=== PATIENT | male | born 1970 | race Caucasian/White ===

== ENCOUNTER 2016-06-04 09:20 | Outpatient (CLI) | payer OTHER ==
[2015-11-23 13:09] VITALS: BMI 25.0
--- NOTE | 2016-06-04 10:06 | DI ---
EXAM: Six radiographic images of the cervical spine. Comparison: None available. Reason for study: Cervical facet joint arthropathy. FINDINGS: Postoperative changes are seen after anterior cervical discectomy and fusion spanning fro m C4-C7. The plate is seated against the anterior cervical vertebral bodies. There appears to be o sseous ridging spanning the entire construct. One of the superior-most cervical screws is is not se en and against the cervical plate, although, without prior imaging it is on the if this screw is heladio hazel out over time or if the screw positioning is stable since surgical intervention. There is no o sseous foraminal narrowing seen on the oblique images. There is 2 mm of retrolithesis of the C3 katerine tebral body on the fusion construct. IMPRESSION: Postoperative changes after for level anterior cervical discectomy and fusion with a sm all amount of retrolithesis at the C3 to fusion construct interspace. The superiormost cervical scr ew is not seen against the cervical plate. Recommend correlation with prior imaging.
== END 2016-06-04 09:21 | disposition home or self-care (01) ==
LOC: RAD 09:20
PROVIDERS: ATTEND Pain Medicine Interventional Pain Medicine
DX: M47.812 Spondylosis without myelopathy or radiculopathy, cervical region (principal); M50.31 Other cervical disc degeneration, high cervical region; M50.320 Other cervical disc degeneration, mid-cervical region, unspecified level

== ENCOUNTER 2018-09-13 08:48 | Outpatient (CLI) ==
[2015-11-23 13:09] VITALS: BMI 25.0
--- NOTE | 2018-09-13 11:17 | MRI ---
EXAM: Cervical spine MRI without contrast TECHNIQUE: Multiplanar multisequence MRI of the cervical spine was performed without contrast. COMPARISON: Cervical spine series from 09/13/2018 HISTORY: Neck pain with history of neck surgery FINDINGS: There has been prior anterior cervical discectomy and fusion from C4-C7. Alignment of the construct appears anatomic. There are no unexpected postsurgical findings. There is no compression fracture. There is no significant bone marrow edema. Alignment is anatomic. There is no acute soft d isc herniation or extrusion. Cord signal is normal without evidence of edema, myelomalacia, [place], mass, syrinx or infarct. There are no abnormal flow voids in the canal to suggest a vascular malformation. Visualized soft tissues and intracranial contents show no acute abnormality. There are no pathologic lymph nodes. The prevertebral soft tissues are not thickened. There is no Chiari malformation or acute ligamentous injury. C1-2: There is mild degenerative change. Alignment of the craniocervical junction is anatomic. There is no bone marrow edema, the dens is intact. C2-3: There is some disc space desiccation and minimal ridging of the posterior longitudinal ligament . Canal stenosis: None C3 neural foraminal stenosis: None C3-4: There is disc space desiccation and mild ridging of the posterior longitudinal ligament. There is mild facet and ligamentous hypertrophy. Canal stenosis: None C4 neural foraminal stenosis: None C4-5: This level has been fused. There is some mild ridging of the posterior longitudinal ligament a nd mild facet and ligamentous hypertrophy. Canal stenosis: None C5 neural foraminal stenosis: None C5-6: This level has been fused. There is some ridging of the posterior longitudinal ligament and mi ld facet and ligamentous hypertrophy. Canal stenosis: None C6 neural foraminal stenosis: None C6-7: This level has been fused. There is mild ridging of the posterior longitudinal ligament and mi ld facet and ligamentous hypertrophy. Canal stenosis: None C7 neural foraminal stenosis: None C7-T1: There is disc space desiccation and mild ridging of the posterior longitudinal ligament and mi ld facet and ligamentous hypertrophy. Canal stenosis: None C8 neural foraminal stenosis: None IMPRESSION: 1. Prior anterior cervical discectomy and fusion from C4-C7 with no unexpected postsurgical findings . Alignment of the construct is anatomic. 2. Minimal scattered degenerative changes as above with no significant foraminal or central canal na rrowing.
--- NOTE | 2018-09-13 11:37 | MRI ---
Examination: MRI of the lumbar spine without contrast 09/13/2018 Clinical information: Lumbar disc disorder. Low back pain. Comparison: Lumbar spine radiographs 04/04/2011. TECHNIQUE: Sagittal and axial T1 and T2W imaging, sagittal STIR and coronal T2W sequences were perfo rmed. FINDINGS: L5 is partially sacralized on the left. The conus medullaris is normal in signal, locatio n and morphology terminating at the L1 vertebral body level. The lumbar vertebral bodies are normal in height, AP alignment and intrinsic marrow signal intensity. There are chronic lower thoracic, L1- L2 and L2-L3 Schmorl's nodes. There is mild loss of disc height at L4-L5 with disc desiccation. The re is a rudimentary L5-S1 intervertebral disc. There is no lumbar vertebral body compression fractur e or abnormal marrow edema. Minor reactive right L4-L5 facet joint edema. A mild lower lumbar levos coliosis may be positional. At the L1-L2 level, there is a minimal disc bulge eccentric left. At the L2-L3 level, there is a diffuse disc bulge eccentric left. There is no central spinal canal s tenosis or foraminal stenosis. At the L3-L4 level, there is a diffuse disc bulge eccentric left. There is mild left greater than ri ght facet hypertrophy. No central spinal canal stenosis. There is minimal left neural foraminal deidre nosis. At the L4-L5 level, there is a diffuse disc bulge. There is modest right greater than left hypertrop hic facet arthropathy. Small right facet joint effusion with trace reactive facet joint edema. Ther e is a T2 hyperintense posterior annular fissure. No significant central spinal canal stenosis. The re is mild bilateral foraminal stenosis. At the L5-S1 level, there is a rudimentary intervertebral disc. L5 is sacralized on the left. Hypop lastic left facet. No central spinal canal stenosis or foraminal stenosis. Impression: 1. L5 is sacralized on the left. 2. L4-L5, T2 hyperintense posterior annular fissure. No disc herniation or central spinal canal deidre nosis. 3. Mild bilateral L4-L5 foraminal stenosis. Minimal left L3-L4 foraminal stenosis. 4. Modest L4-L5 hypertrophic facet arthropathy. Small right L4-L5 facet joint effusion with trace r eactive edema. 5. Chronic lower thoracic and upper lumbar Schmorl's nodes.
--- NOTE | 2018-09-13 12:14 | DI ---
EXAM: CERVICAL SPINE, 3 VIEWS HISTORY: Disc disorder. FINDINGS: Cervical spine open mouth, frontal and lateral views. Compared to 06/04/2016. Redemonstr ation of anterior stabilization hardware extending from C4 through C7. Hardware is intact. Currentl y there is no distinct evidence of spondylolisthesis. Posterior osteophytic spurring is noted at C3/ C4. No fracture or loss of vertebral body height. No scoliosis. Lateral masses of C1 and C2 are n ormally aligned and the odontoid process is intact. IMPRESSION: Stable hardware from C4-C7. Degenerative changes of the spine most apparent at C3/C4. Findings appear similar to that previously seen.
--- NOTE | 2018-09-13 13:06 | DI ---
Examination: Three views lumbar spine. Heading HISTORY: Disc disorder. Heading COMPARISON: 04/04/2011. Heading FINDINGS: Calcification left pelvis likely vascular in nature. Question lumbarization of L5 on the left. There is degenerative disc disease with loss of disc height most prominent L4-L5 and L5-L1. F acet degenerative changes L4-L5 and L5-S1. Vertebral body heights and alignment are otherwise mainta ined. IMPRESSION: Degenerative changes in the lumbar spine worst at L5-S1 as above.
== END 2018-09-13 08:49 | disposition home or self-care (01) ==
LOC: RAD 08:48
PROVIDERS: ATTEND Pain Medicine Interventional Pain Medicine
DX: M50.123 Cervical disc disorder at C6-C7 level with radiculopathy (principal); M50.221 Other cervical disc displacement at C4-C5 level; M50.222 Other cervical disc displacement at C5-C6 level; M47.812 Spondylosis without myelopathy or radiculopathy, cervical region; M96.1 Postlaminectomy syndrome, not elsewhere classified; M50.31 Other cervical disc degeneration, high cervical region; M50.33 Other cervical disc degeneration, cervicothoracic region; M47.813 Spondylosis without myelopathy or radiculopathy, cervicothoracic region; M51.16 Intervertebral disc disorders with radiculopathy, lumbar region; M51.17 Intervertebral disc disorders with radiculopathy, lumbosacral region; F33.1 Major depressive disorder, recurrent, moderate